=== PATIENT | female | born 1990 | race Two or more races ===

== ENCOUNTER 2021-03-13 08:56 | Outpatient (CLI) | payer OTHER | END 2021-03-13 09:01 | disposition home or self-care (01) | LOC: RAD 08:56 | PROVIDERS: ATTEND Physical Medicine & Rehabilitation | DX: S82.402A Unspecified fracture of shaft of left fibula, initial encounter for closed fracture (principal); S96.111A Strain of muscle and tendon of long extensor muscle of toe at ankle and foot level, right foot, initial encounter ==